=== PATIENT | male | born 1965 | race Caucasian/White ===

== ENCOUNTER 2020-08-19 09:57 | Emergency (ER) | payer MEDICAID ==
[~2020-08-19] VITALS: Ht 165.1 cm; Wt 85.6 kg
--- NOTE | 2020-08-19 12:22 | NUR ---
BUSINESS OFFICE DIRECTOR: PT TO ROOM FROM LOBBY
[2020-08-19] MEDS ORDERED: NAPROXEN 500 MG TABLET ONE (12:54)
--- NOTE | 2020-08-19 12:57 | NUR ---
STATES "I HAD SOME SYMPTOMS AND I JUST WANTED TO GET A COVID TEST". "UPSET STOMACH AND REAL BAD HEADACHE" SX STARTED THIS MORNING. DENIES VOMITING, DIARRHEA, CONSTIPATION, NEW COUGH (ADMITS TO CHRONIC COUGH). SENSE OF SMELL AND TASTE INTACT. NO MED TAKEN FOR SX TODAY.
[2020-08-19] MEDS ORDERED: HYDR25TA6 PO (12:59)
[2020-08-19] MEDS ORDERED: NAPROXEN 500 MG TABLET PO ONE (13:00)
--- NOTE | 2020-08-19 13:50 | NUR ---
PT REPORTS DECREASED ALVAREZ PAIN.
[2020-08-19 13:55] VITALS: BP 134/86
== END 2020-08-19 13:57 | disposition home or self-care (01) ==
LOC: ED 11:38
DX: U07.1 COVID-19 (principal); I10 Essential (primary) hypertension; F17.210 Nicotine dependence, cigarettes, uncomplicated
CPT/HCPCS: 36415; 87635; 99283; 99406